=== PATIENT | male | born 1985 | race Caucasian/White ===

== ENCOUNTER 2019-05-18 02:14 | Day surgery (SDC) | payer BC, OTHER ==
[~2019-05-18] VITALS: Ht 182.9 cm; Wt 156.3 kg
[2019-05-18] MEDS ORDERED: LIPI20TA PO (02:22)
[2019-05-18] MEDS ORDERED: OTEZ1TAB3 PO (02:22)
[2019-05-18] MEDS ORDERED: METF-877 PO (02:22)
[2019-05-18] MEDS ORDERED: LIDOCAINE 2% 5ML JELLY UROJET As Ordered ONE (03:49)
[2019-05-18] MEDS ORDERED: LIDOCAINE 1% MDV 20ML VIAL As Ordered ONE (04:00)
[2019-05-18] MEDS ORDERED: ceFAZolin SOD 2 GM in IV 1 EA IV ONE (04:30)
[2019-05-18] MEDS ORDERED: MORPHINE 2 MG/ML 1ML VIAL (J2270) IV PRN (04:30)
[2019-05-18] MEDS ORDERED: LIDOCAINE 1% SDV INJ 30 ML VIAL As Ordered ONE (04:45)
[2019-05-18] MEDS ORDERED: BUPIVACAINE HCL 0.25% 30 ML VIAL As Ordered ONE (04:46)
[2019-05-18] MEDS ORDERED: LIDOCAINE 2% INJ 100 MG/5 ML SDV (FOR ANES.) As Ordered ONE (04:47)
[2019-05-18] MEDS ORDERED: MIDAZOLAM INJ 2 MG/2 ML VIAL (J2250) As Ordered ONE (04:47)
[2019-05-18] MEDS ORDERED: propofoL 200 MG/20 ML VIAL As Ordered ONE (04:47)
[2019-05-18] MEDS ORDERED: fentaNYL 100 MCG/2 ML INJECTION (J3010) As Ordered ONE (04:47)
[2019-05-18] MEDS ORDERED: ceFAZolin 2 GM/D5W 50 ML IV BAG (J0690 PER 500MG) As Ordered ONE (05:03)
[2019-05-18] MEDS ORDERED: dexameTHASONE 4 MG/ML 1ML VIAL (J1100) As Ordered ONE (05:18)
[2019-05-18] MEDS ORDERED: ONDANSETRON 4MG/2ML VIAL (J2405) As Ordered ONE (05:18)
[2019-05-18] MEDS ORDERED: ONDANSETRON 4MG/2ML VIAL (J2405) IV PRN (06:30)
[2019-05-18] MEDS ORDERED: fentaNYL 100 MCG/2 ML INJECTION (J3010) IV PRN (06:30)
[2019-05-18] MEDS ORDERED: oxyCODONE 5MG TAB PO PRN (06:30)
[2019-05-18] MEDS ORDERED: LR 1,000 ML IV SCH (06:30)
[2019-05-18] MEDS ORDERED: D5W/0.45% SODIUM CHLORIDE 1,000 ML IV SCH (06:30)
[2019-05-18 07:03] VITALS: BP 142/101
[2019-05-18 07:04] VITALS: BP 140/100
[2019-05-18 07:15] LABS: APPEARANCE, URINE HAZY (CLEAR); BACTERIA, URINE AUTO NEGATIVE (NEGATIVE); BILIRUBIN, URINE AUTO NEGATIVE (NEGATIVE); BLOOD, URINE BLOOD 3+ (NEGATIVE); COLOR, URINE YELLOW (YELLOW); GLUCOSE, URINE (UA) AUTO NEGATIVE (NEGATIVE); KETONE, URINE AUTO NEGATIVE (NEGATIVE); LEUKOCYTE ESTERASE, URINE AUTO NEGATIVE (NEGATIVE); MUCUS, URINE SMALL (NEGATIVE); NITRITE, URINE AUTO NEGATIVE (NEGATIVE); PROTEIN, URINE AUTO 1+ mg/dL (NEGATIVE); RBC, URINE AUTO TNTC /HPF (0-3); SPECIFIC GRAVITY URINE AUTO 1.021 (1.002-1.035); SQUAMOUS EPITHELIAL CELL UR AU 1 /HPF (0-6); UROBILINOGEN, URINE AUTO 0.2 mg/dL (0.0-2.0); WBC, URINE AUTO 2 /HPF (0-3)
[2019-05-18 07:30] VITALS: BP 145/97
[2019-05-18] MEDS ORDERED: TEMO0.0517 TOP (07:33)
[2019-05-18 08:30] VITALS: BP 143/80
[2019-05-18] MEDS ORDERED: BACTRIM 160MG/800MG DS TAB PO SCH (09:00)
[2019-05-18 09:30] VITALS: BP 143/80
[2019-05-18 10:30] VITALS: BP 143/82
[2019-05-18] MEDS ORDERED: MACR100C43 PO (15:08)
--- NOTE | 2019-05-18 18:38 | CR ---
DATE OF CONSULTATION: 05/18/2019 REASON FOR CONSULTATION: Inability to place Watters catheter and urinary retention. HISTORY OF PRESENT ILLNESS: The patient is a 33-year-old gentleman who went to [facility]'s emergency room this evening for a several-hour history of inability to void. For several months he has noticed difficulty with his urinary stream and incomplete bladder emptying but had not seen anyone. He denies any history of sexually transmitted diseases or urethral discharge. They attempted placing a Watters catheter at [facility] but were unable to pass what they felt was a distal stricture. When he was transferred to the emergency room, they also attempted Watters catheter multiple times without success, including putting in an 8-Gambian pediatric tube. The patient denies any previous history of gross hematuria, kidney stones, burning with urination, or recurrent urinary tract infections. His white blood count is elevated on admission with a white blood count of 15.88. His glucose was also high at 200. He had over 500 mL in his bladder on ultrasound, but ultrasound was difficult because of his body habitus. PAST MEDICAL HISTORY: 1. Psoriasis. 2. High blood pressure. 3. Diabetes. PAST SURGICAL HISTORY: Denies. MEDICATIONS: Metformin, Lipitor, and Otezla. ALLERGIES: No known drug allergies. SOCIAL HISTORY: He is single. He does not smoke cigarettes or drink alcohol appreciably. He denies intravenous (IV) drug use. FAMILY HISTORY: Noncontributory. REVIEW OF SYSTEMS: A 12-system review was negative, and specific questions to he had no significant constipation or diarrhea. There is been no nausea or vomiting. He has had no neurologic symptoms. PHYSICAL EXAMINATION: This is a well-developed, well-nourished gentleman in no apparent respiratory distress. He is alert and oriented times three. His blood pressure was 143/73. His pulse was 87, his temperature was 98.1, and his respiratory rate were 18. His head was normocephalic, atraumatic. His eyes were pupils equal, round, and reactive to light (PERRL) and extraocular muscles intact (EOMI). His neck was supple. His heart had a regular rate and rhythm, and his lungs were clear to auscultation to percussion. He had no costovertebral angle (CVA) tenderness. His abdomen was morbidly obese and very tender in the suprapubic area over the bladder. His extremities showed no cyanosis, clubbing, or edema. Skin exam does show psoriatic lesions throughout his body. LABORATORY DATA His white blood count is 15.88. His hemoglobin and hematocrit are 14.5 over 43.3. His platelets are 328. His BUN is 12 and his creatinine is 0.695. His glucose is 200. A urinalysis, and I am not sure how this was done, showed 101 red blood cells and 0-5 white blood cells per high-power field. I attempted to place a Watters catheter and use the [email or web address] difficult urology tray by placing a filiform in the urethra. I was able to place the filiform through both distal strictures but not through the bladder neck. I then attempted to place a Coude catheter but was unable to pass this through a distal stricture, so this was then dilated using the difficult urology tray, but then I still was unable to pass. At this point it was decided to place a suprapubic tube. SUPRAPUBIC TUBE: The patient was prepped and draped, and 1% lidocaine was injected over the area of the bladder. First a spinal needle was placed in the midline, and there was excellent efflux of urine. The problem was this was extremely deep, at this point, an incision was attempted first with the Clipsure catheter kit to place a suprapubic tube, but this was too large, so I then went to a much smaller tube, but still was unable to place. At some point, unfortunately I did hit a vein, it was unable to go deeper into the bladder. This vein most likely was a rectal muscle vein, and unfortunately the patient may develop a hematoma postprocedurally. At this point, it was decided to bring the patient to the operating room, and we will attempt cystoscopy first and try to get a Watters catheter in from below. We will do urethral dilation and internal optical urethrotomy if necessary. If I am unable to place the catheter from below because of severe urethral trauma, which I expect at this point, then we will plan on placing an open suprapubic catheter. Major risks of the procedure included, but were not limited to, the risks of general anesthesia, reactions to medication, bleeding, infection, inability to place the catheters, need for further surgical management, etc. Informed consent was obtained in both verbal and written form. IMPRESSION: 1. Acute urinary retention but in a patient who has had difficulty urinating for several months, most likely with urethral stricture disease. 2. Inability to place Watters catheter or suprapubic tube in the emergency room. PLAN: Bring the patient emergently to the operating room for surgical management, first attempting cystoscopy, urethral dilation, internal urethrotomy, and Watters catheterization versus an open suprapubic tube if unable to get in from below. Thank you very much for this consultation.
--- NOTE | 2019-05-21 08:31 | RO ---
DATE OF PROCEDURE: 05/18/2019 PREOPERATIVE DIAGNOSIS: Urinary retention and inability to place a Watters catheter and suprapubic tube at the bedside in the ER. POSTOPERATIVE DIAGNOSIS: Urethral stricture disease and the urinary retention and inability to place a Watters catheter and suprapubic tube at the bedside in the ER. PROCEDURE: Attempted cystoscopy, urethral dilation, and placement of a suprapubic catheter. SURGEON: Dr. Lashae Oseguera ANESTHESIA: General. MEDICATIONS: Ancef grams 2 gram preoperatively. ESTIMATED BLOOD LOSS: Minimal. DRAINS: 12-Tamazight Cook Malecot suprapubic catheter. INDICATIONS FOR PROCEDURE: The patient is a 33-year-old gentleman who was transferred from [facility] with urinary retention inability to place a Watters catheter. Multiple Watters catheters were attempted. He then arrived at the emergency room here at 03:00 a.m. and they too attempted to place a catheter and he had both the distal stricture that they were able to get past that but was unable to enter at the proximal urethra. So I came in. I attempted using the Bard difficult urology tray using filiform this and was unable was able to get past the distal strictures but not able to get past the proximal stricture. At this point I attempted to place a suprapubic catheter and had no problem putting in the spinal needle and getting urine back but because of his body habitus it was very difficult to do this with the Seldinger technique and I hit what appeared to be a rectus muscle vessel and had blood return through the catheter so was decided to not attempt this any further and to bring him to the operating room for further management. Informed consent was obtained and both verbal and written form. We discussed all different options, alternatives, risks, and benefits which included but was not limited to the risks of general anesthesia, reactions to medication, bleeding, infection, inability to place a Watters catheter need for further surgical management and the future, possible open suprapubic tube placement and bowel injury. PROCEDURE: The patient was brought into the operating room and sequential compression devices were in place. General anesthesia was induced. He was then placed in the lithotomy position and careful attention was paid that his pressure points were well padded and protected. He was prepped and draped in the usual fashion. Next a 21-Tamazight cystoscope was inserted. Originally with a 30 degrees lens. Unable to pass this through the distal urethra so this was dilated using urethral sounds up to a 24-Tamazight but I only when usp through the urethra was then able to pass the cystoscope at this point, but in the proximal urethra right just he had what appeared to be a solid wall. I attempted with a wire to find either way around a possible false passage or through the stricture but was unable to pass the wire. At this point it was decided to place a suprapubic tube. In the area where I made the previous incision. I then placed my spinal needle again with excellent the efflux of urine. The problem was his bladder was just extremely deep secondary to his body habitus. I was able though to measure have the needle went and at this point placed a 12-Tamazight Cook catheter in the same area and this time got back to clear yellow urine and no blood. The catheter was then advanced over the wire and the needle was removed. Catheter drained out least 1200 mL of what appeared to be concentrated urine. This was sewn in place using a 2-0 silk suture and a dressing was placed with OpSite. The patient tolerated the procedure well and was returned to the recovery room in stable condition. He will be observed for several hours she has because of his elevated white blood count and also to rule out any significant rectus hematoma.
== END 2019-05-18 13:55 | disposition home or self-care (01) ==
LOC: M ED 02:14 → M SDC 02:15 → M MS5PR 07:00 → M SDC 13:55
PROVIDERS: ATTEND Specialist
DX: R33.9 Retention of urine, unspecified (principal); N35.919 Unspecified urethral stricture, male, unspecified site; K91.72 Accidental puncture and laceration of a digestive system organ or structure during other procedure; I10 Essential (primary) hypertension; E11.9 Type 2 diabetes mellitus without complications; E78.5 Hyperlipidemia, unspecified; L40.9 Psoriasis, unspecified; Z79.899 Other long term (current) drug therapy; Z79.84 Long term (current) use of oral hypoglycemic drugs
CPT/HCPCS: 51102; 52281; 81001; 87086; 96361; 96374; 99284; J0690; J1100; J2250; J2270; J2405; J3010

== ENCOUNTER → 2019-05-23 | Outpatient (CLI) | payer BC, OTHER ==
[~2019-05-23] MED LIST: LIPI20TA PO; MACR100C43 PO; METF-877 PO; OTEZ1TAB3 PO; TEMO0.0517 TOP
[2019-05-23 14:06] LABS: HEMOGLOBIN 15.2 g/dl (13.5-17.5); MEAN CORPUSCULAR HEMOGLOBIN 27.4 pg (27.0-33.0); PLATELET COUNT, AUTOMATED 378 10^3/uL (150-450); RED BLOOD COUNT 5.54 10^6/uL (4.30-6.10); WHITE BLOOD COUNT 18.1 10^3/uL (4.0-10.0)
[2019-05-23 14:15] LABS: INR 1.13; PROTHROMBIN TIME 14.2 SECONDS (11.8-14.0)
[2019-05-23 14:16] LABS: PARTIAL THROMBOPLASTIN TIME 34.9 SECONDS (25.0-38.4)
[2019-05-23 14:31] LABS: BLOOD UREA NITROGEN 11 MG/DL (7-18); CALCIUM LEVEL 9.5 MG/DL (8.5-10.1); CARBON DIOXIDE LEVEL 27 MEQ/L (21-32); CHLORIDE LEVEL 104 MEQ/L (98-107); CREATININE FOR GFR 0.76 MG/DL (0.70-1.30); GLOMERULAR FILTRATION RATE > 60.0 (>60); GLUCOSE, FASTING 109 MG/DL (70-100); POTASSIUM SERUM 3.8 MEQ/L (3.5-5.1); SODIUM LEVEL 140 MEQ/L (136-145)
== END ==
LOC: M PLALAB 12:36
PROVIDERS: ATTEND Urology
DX: N35.916 Unspecified urethral stricture, male, overlapping sites (principal)

== ENCOUNTER 2019-05-30 09:56 | Day surgery (SDC) | payer BC, OTHER ==
[~2019-05-30] VITALS: Ht 182.9 cm; Wt 154.0 kg
[~2019-05-30 09:56] MED LIST changes: +ACET-683 PO; +KEFL500C17 PO; +KETO10TAB PO; +LIDOCAINE 1% MDV 20ML VIAL SQ PRN; +LIDOCAINE 2% INJ 100 MG/5 ML SDV (FOR ANES.) As Ordered ONE; +LR 1,000 ML IV ONE; +MIDAZOLAM INJ 2 MG/2 ML VIAL (J2250) As Ordered ONE; +ROCURONIUM BROMIDE 50 MG/5 ML VIAL As Ordered ONE; +ceFAZolin SOD 1 GM in D5W MINI-BAG PLUS 50 ML IV ONE; +ceFAZolin SOD 2 GM in IV 1 EA IV ONE; +dexameTHASONE 4 MG/ML 1ML VIAL (J1100) As Ordered ONE; +ePHEDrine SULFATE 25 MG/5 ML(5MG/ML) SYRINGE As Ordered ONE; +fentaNYL 250 MCG/5 ML INJECTION (J3010) As Ordered ONE; +propofoL 200 MG/20 ML VIAL As Ordered ONE
[2019-05-30] MEDS ORDERED: PHENYLephrine HCL 500 MCG/5 ML (100MCG/ML) SYRINGE (J2370) As Ordered ONE (10:03)
[2019-05-30] MEDS ORDERED: BUPIVACAINE HCL 0.25% 30 ML VIAL As Ordered ONE (12:34)
[2019-05-30] MEDS ORDERED: CONRAY-60 60% 50ML VIAL (Q9961) As Ordered ONE ×2 (12:34→13:55)
[2019-05-30] MEDS ORDERED: LIDOCAINE 1% SDV INJ 30 ML VIAL As Ordered ONE (12:34)
[2019-05-30] MEDS ORDERED: ACETAMINOPHEN 1000MG 100ML IV BTL (OFIRMEV) (J0131 PER 10MG) As Ordered ONE (13:31)
[2019-05-30] MEDS ORDERED: propofoL 200 MG/20 ML VIAL As Ordered ONE (13:48)
[2019-05-30] MEDS ORDERED: METOCLOPRAMIDE INJ 10MG/2ML VIAL (J2765) As Ordered ONE (13:59)
[2019-05-30] MEDS ORDERED: DESFLURANE 240 ML INHALANT As Ordered ONE (14:07)
--- NOTE | 2019-05-30 15:15 | REP ---
Retrograde urethrogram: 14 views. History: Retrograde urethrogram. Filming in the operating room. 38 seconds of fluoroscopy time is reported. Findings: A sequence of 14 last image hold fluoroscopically obtained spot radiographs document performance of a retrograde urethrogram and a cystogram. There is contrast extravasation in the perineal soft tissues visible on retrograde urethrogram films. There appears to be a percutaneous cystostomy catheter in place on the final films. Electronically Signed by Gerber Richey MD 05/30/2019 07:37 P
[2019-05-30] MEDS ORDERED: ONDANSETRON 4MG/2ML VIAL (J2405) IV PRN (16:30)
[2019-05-30] MEDS ORDERED: fentaNYL 100 MCG/2 ML INJECTION (J3010) IV PRN (16:30)
[2019-05-30] MEDS ORDERED: LR 1,000 ML IV SCH (16:30)
[2019-05-30] MEDS: oxyCODONE 5MG TAB PO PRN ×2 (17:04→17:36)
[2019-05-30] MEDS ORDERED: PERCOCET 5MG/325MG TAB PO PRN (17:31)
[2019-05-30] MEDS ORDERED: oxyBUTYnin 5 MG TAB PO PRN (17:31)
[2019-05-30] MEDS ORDERED: oxyCODONE 5MG TAB As Ordered ONE (17:35)
[2019-05-30 18:45] VITALS: BP 142/74
--- NOTE | 2019-05-31 10:40 | RO ---
DATE OF PROCEDURE: 05/30/2019 PREPROCEDURE DIAGNOSIS: Urethral stricture. POSTPROCEDURE DIAGNOSIS: Urethral stricture. PROCEDURE: Open cystotomy with suprapubic catheter placement, cystoscopy, retrograde urethrogram and cystourethrogram with intraoperative interpretation of images. SURGEON: Dr. Ishmael Crabtree. TRAIN CREW MEMBER: Aria Doll NP. ANESTHESIA: General. OPERATIVE INDICATIONS: This is a 33-year-old male who presented to the hospital approximately 1 week ago in urinary retention. He had multiple attempts at having a urethral catheter placed at an outside hospital as well as here at our hospital. Another urologist was unable to place the catheter here at our hospital. She ultimately took him to the operating room and could not find the urethral lumen on cystoscopy. It appeared to be obliterated near the bulbar urethra. She therefore, placed a suprapubic catheter using one of the emergency suprapubic catheter kits. The patient was brought to the operating room today to re-evaluate the urethra and if unable to get a scope into the bladder, up-size the suprapubic catheter. DESCRIPTION OF PROCEDURE: The patient was brought to the operating room and general anesthesia was induced. Prophylactic antibiotics were infused. He was then placed in the dorsal lithotomy position and prepped and draped in the usual sterile fashion. A rigid cystoscope was inserted into urethral meatus and advanced towards the bladder. At the level of bulbar urethra no urethral lumen could be identified. The tissue did not appear scarred but looked traumatized from previous instrumentation. I attempted to advance a wire through what appeared to be potentially a lumen and the wire would not advance. At this point, it was clear that I was not going to be able to get the cystoscope into the bladder. Therefore, the cystoscope was removed. I then utilized an 18-Armenian Watters catheter to shoot a retrograde urethrogram and this was notable for contrast extravasation at the level of the bulbar urethra into perineal tissue. I then tried to shoot a cystogram through the previously placed suprapubic catheter and no contrast appeared to exit the bladder and into the urethra at all. At this point, the decision was made to up-size the patient's suprapubic catheter. He was then taken out of the dorsal lithotomy position and placed supine. He was reprepped and draped. His previous suprapubic catheter was removed prior to prepped and draping. At this point, an approximately 6-7 cm midline incision was made just above the level of the pubic symphysis. We then dissected down through the subcutaneous tissues. The rectus fascia was then opened with electrocautery and the bellies of the rectus were bluntly spread. We then dissected down to the perivesical fat and this was opened using electrocautery. A spinal needle was utilized to aspirate in the area that we assumed was the bladder and yellow fluid was aspirated, confirming that we were in deed dissecting down at the level of the bladder. At this point, a #2-0 Vicryl pursestring stitch was made at the dome of the bladder. A cystotomy was then performed and a 20-Armenian Watters catheter was inserted into the cystotomy and the balloon filled with 7 mL of sterile water. The previously placed pursestring stitch was tied down on the catheter. I then irrigated the catheter and it irrigated easily. The abdominal cavity was then irrigated out thoroughly with warm saline. We then closed the rectus fascia with [id number] #1 non-looped PDS sutures. The abdomen would was then irrigated once again. Subcutaneous tissues were re-approximated with interrupted #2-0 Vicryl suture. The skin was then closed around the catheter with a running subcuticular #4-0 Monocryl suture. The catheter was further secured to the skin with two separate #2-0 Prolene sutures. Dermabond was then applied and this marked the conclusion of the procedure. The catheter was connected to gravity drainage. The patient was then awakened from anesthesia and transported to the recovery room in stable condition. ESTIMATED BLOOD LOSS 25 mL. COMPLICATIONS: None. SPECIMENS: None. PLAN: I will give patient's urethra a few more weeks to heal then take another look in as I am not completely convinced that he did not have a very bad false passage created with his previous attempts at catheterization a week ago. I will plan to bring him to the office for cystoscopy in approximately 4 weeks. If I am able to find a way into the bladder at that point, then we will take his suprapubic catheter out. If at that point, it is confirmed that he definitely has a urethral stricture, we will plan to refer him to a reconstructive urologist for possible urethroplasty. BARTOLO
== END 2019-05-30 19:10 | disposition home or self-care (01) ==
LOC: M SDC 09:56
PROVIDERS: ATTEND Urology
DX: N35.916 Unspecified urethral stricture, male, overlapping sites (principal); E11.9 Type 2 diabetes mellitus without complications; E78.2 Mixed hyperlipidemia; L40.9 Psoriasis, unspecified; Z79.84 Long term (current) use of oral hypoglycemic drugs; Z79.899 Other long term (current) drug therapy
CPT/HCPCS: 51040; 52005; 74420; C1769; J0131; J0690; J1100; J2250; J2765; J3010; Q9961